=== PATIENT | male | born 1940 | race Caucasian/White ===

== ENCOUNTER → 2020-05-29 14:44 | Outpatient (BNVA) | payer MEDICARE, OTHER, SELFPAY | PROVIDERS: PCP Family Medicine; Visit Provider Orthopaedic Surgery | DX: G56.01 Carpal tunnel syndrome, right upper limb | CPT/HCPCS: 73100 ==

== ENCOUNTER → 2020-06-07 09:32 | Outpatient (BNVA) | payer MEDICARE, OTHER, SELFPAY | PROVIDERS: PCP Family Medicine; Visit Provider Orthopaedic Surgery | DX: Z01.812 Encounter for preprocedural laboratory examination (principal); Z11.52 Encounter for screening for COVID-19 | CPT/HCPCS: 87635 ==

== ENCOUNTER 2020-06-13 07:19 | Day surgery (SDC) | payer MEDICARE, OTHER, SELFPAY ==
[2020-06-12 15:48] VITALS: BMI 26.6
--- NOTE | 2020-06-13 07:41 | PC.NURSE ---
VERBAL CONSENT VIA CONVERSATION WITH PATIENT
--- NOTE | 2020-06-13 07:41 | PC.NURSE ---
VERBAL CONSENT VIA CONVERSATION WITH PATIENT FOR RIGHT CARPAL TUNNEL RELEASE WITNESSED BY SCARLETT JALLOH
[2020-06-13 07:42] VITALS: BP 159/81; PULSE 50; RESP 18; TEMP 36.1; O2SAT 99
--- NOTE | 2020-06-13 07:58 | ANES.PREANE2 ---
Pre-Anesthetic Assessment Pre-Anesthetic Assessment: Height/Weight: Height 1.73 m Weight 79.379 kg Temp Pulse Resp BP Pulse Ox 97.0 F L 50 L 18 159/81 99 06/13/20 07:42 06/13/20 07:42 06/13/20 07:42 06/13/20 07:42 06/13/20 07:42 Preop Diagnosis: Carpal tunnel syndrome right Proposed Procedure: Operation Date: 06/13/20 08:50 Proposed Procedures p right Carpal Tunnel Release [id number] g56.03(Right) - Brandon Parikh MD Was Beta Fredi taken within 24 hours: Yes Last intake: Intake Last Liquid Date 06/12/20 Last Liquid Time 21:00 Last Solid Date 06/12/20 Last Solid Time 18:00 Social: Social History: No alcohol and No tobacco Exam: Pre-Anes Outpt Exam: alert, oriented x 3, clear to auscultation bilaterally and regular rate & rhythm Airway: Submandibular: WNL Cervical ROM: WNL MP: 2 History/ROS: No significant complaints Pulmonary: Pulmonary: None reported CV/HEM: CV/HEM: HTN : : None reported Hepatic: Hepatic: None reported GI: GI: None reported Metabolic: Metabolic: Hyperlipidemia and Thyroid Musc/skel: Musc/skel: None reported Neuropsych: Neuropsych: Depression Anesthetic Plan: ASA status: 3 Anesthesia: Regional (specify below) (Leyla Block with IVS) Data Anesthesia Cardiac Studies: No Data to Display
[2020-06-13] MEDS: sodium chloride 0.9% 1,000 ML 30 ML IV (08:03)
--- NOTE | 2020-06-13 09:06 | W.PM.OPSUD ---
Surgery/Procedure H&P Update DATE OF PROCEDURE: June 13, 2020 DATE H&P PERFORMED: 05/29/20 PREOP DIAGNOSIS: Carpal tunnel syndrome right PLANNED PROCEDURE: Operation Date: 06/13/20 08:50 Proposed Procedures p right Carpal Tunnel Release 61860 g56.03(Right) - Brandon Parikh MD
[2020-06-13 09:44] VITALS: BP 155/73; PULSE 44; RESP 16; TEMP 36.2; O2SAT 93
[2020-06-13 09:50] VITALS: BP 146/80; PULSE 48; RESP 18; TEMP 36.6; O2SAT 96
--- NOTE | 2020-06-13 09:51 | PM.OP ---
Operative Report Date of procedure: June 13, 2020 Pre-op Diagnosis: Carpal tunnel syndrome right Post-op diagnosis: same Post-op Findings: Right carpal tunnel syndrome Procedure Done: Right carpal tunnel release Pathology: none sent Surgeon: Brandon Parikh Anesthesia: Nerve Block (Leyla block) Estimated blood loss (mL): 5 Complications: None Findings: No masses or space-occupying lesions were seen with the carpal tunnel Condition: stable Procedure: Patient was taken to the operating room and anesthesia provided by the anesthesia service. She was prepped and draped with the arm exposed. A timeout was performed. A 3 cm long incision was made in line with the fourth ray from the distal edge of the carpal tunnel extending proximally. The subcutaneous fat and palmar fascia was divided with a scalpel blade. Under loupe magnification the ulnar neurovascular bundle was identified distally. A hemostat could be passed under the transverse carpal ligament allowing the distal 25% to be divided. A slotted guide was then passed beneath the transverse carpal ligament and the middle 50% divided. Blunt scissors were then passed over the guide freeing the proximal ligament. The tourniquet was deflated. Hemostasis provided with electrocautery. Wound edges were infiltrated with 10 cc of a half percent Marcaine solution. Skin edges were reapproximated with 3-0 Prolene. Sterile dressings were applied. The patient was taken to the recovery room in stable condition
[2020-06-13 09:57] VITALS: BP 162/82; PULSE 45; RESP 18; TEMP 36.6; O2SAT 97
--- NOTE | 2020-06-13 10:16 | ANE.PACU2 ---
Inpatient post-anesthesia follow up: Airway intact: Yes Vital signs: Temperature 97.8 F Pulse Rate 45 Respiratory Rate 18 Blood Pressure 162/82 Pulse Oximetry 97 Oxygen Delivery Me thod Room Air Oxygen Flow Rate Fraction of Inspir ed Oxygen Hydration adequate: Yes Nausea and vomiting: No Pain level: 2 Mental status: Baseline
[2020-06-13 10:17] VITALS: BP 169/88; PULSE 43; RESP 18; TEMP 36.6; O2SAT 98
--- NOTE | 2020-06-13 16:24 | PC.NURSE ---
VERBAL CONSENT VIA CONVERSATION WITH PATIENT FOR RIGHT CARPAL TUNNEL RELEASE WITNESSED BY SCARLETT JALLOH
== END 2020-06-13 10:34 | disposition home or self-care (01) ==
PROVIDERS: PCP Family Medicine; Visit Provider Orthopaedic Surgery
PROC: (CPT 64721; principal; 2020-06-13 08:50)
DX: G56.01 Carpal tunnel syndrome, right upper limb (principal); I10 Essential (primary) hypertension; E78.5 Hyperlipidemia, unspecified
CPT/HCPCS: 64721; 96365; J0690; J1885; J2704; J3010; J3490; J7030

== ENCOUNTER 2021-03-20 13:16 | Emergency (ER) | payer MEDICARE, OTHER, SELFPAY ==
[2021-03-20 13:29] VITALS: BP 141/72; PULSE 44; RESP 16; TEMP 36.1; O2SAT 97
--- NOTE | 2021-03-20 13:58 | W.ED.GENADLT ---
HPI - General Adult General: Chief complaint: Back Pain/Injury Stated complaint: LOW BACK PAIN Time Seen by Provider: 03/20/21 13:38 History of Present Illness: HPI narrative: CC: Back pain HPI: [80]yo patient w/ hx of episodic chronic bakc pain presenting to the ED with acutely worsening of L glute/lower back pain after patient bent over yesterday morning. Denies any trauma. Patient says that he feels like there is a knot in his lower back and gluteal area. Today, patients denies trauma to the back, fever/chill/IVDU, LE weakness, saddle anesthesia/bowel incontinence/bladder incontinence, or hx of recent weight loss or cancer. In addition, he does not have a history of kidney stone or urinary symptoms/hx of UTI. Of note, patient has had similar episode of prior back pain that required injection. Patient went to see a chiropractor last year and had resolution of symptoms. Reports that his current pain feels similar to before. Onset: chronic, acutely worsening symptoms x 2 days Duration: 2 days Location: L glute/L lower back Severity: moderate Review of Systems Narrative: Constitutional: No fever, no chills. HEENT: No vision changes CV: No chest pain, no palpitations PULM: No cough, no dyspnea. GI: No abdominal pain, no N/V/D. : No dysuria MSKEL: No edema SKIN: No new rashes, no lesions. NEURO: No headache, no focal weakness. HEME: No visible bruises PSYCH: Normal mood BACK: +L-glute/L-lower back pain/knot Physical Exam Narrative: EXAM NARRATIVE: Head: Atraumatic Eyes: PERRL, conjunctiva without injection ENT: Mucous membrane moist NECK: Supple without lymphadenopathy LUNGS: CTA CV: RRR ABDOMEN: Soft, nontender EXTREMITY: Normal ROM, 5/5 strength in hip/knee/ankle f/e bilaterally, sensation intact bilaterally in the LE, +L lower back pain SKIN: No rash or erythema NEURO: Awake and alert. No focal motor deficits. PSYCH: Normal mood and affect. : No saddle anesthesia BACK: No midline tenderness, no step off, obvious deformity, hip stable, +palpable muscle knot at the L upper glute/sacral area with mild tenderness to palpation, no signs of infection surrounding the knot Procedures Nerve Block Nerve Block 1: Time out performed: Yes Local Anesthetic: lidocaine 1%, bupivacaine 0.5% and with epi Amount of anesthesia used (mL): 8 Nerve Blocks: other (trigger point injection) Procedure Successful: Yes Patient Tolerated Procedure: well Complications: none Additional Comments: Risks of procedures in infection, nerve injury, hematoma, and bleeding discussed extensively with patient and alternatives of medical management discussed in detail. Patient elects for the procedure. Trigger point injections of the L glutes - one trixie were appreciated on palpitation. Surface cleaned extensively with isopropyl alcohol and chlorohexadine, sterile 7-0 gloves used. 40mg of kenalog mixed 8 cc of lidocaine 1% w/ epi and 0.5% bupivcane w/ epi were injected into the sites of pain and pressure. Course Vital Signs: Vital signs: Vital Signs Temperature 97.0 F L 03/20/21 13:29 Pulse Rate 44 L 03/20/21 13:29 Respiratory Rate 16 03/20/21 13:29 Blood Pressure 141/72 03/20/21 13:29 Pulse Oximetry 97 03/20/21 13:29 MDM - General Adult MDM Narrative: Medical decision making narrative: [80]yo patient w/ hx of chronic back pain presenting with L glute/lower back pain x 2days after bening back. No pain with ambulation. No sciatical like radiation of pain. Neurological exam including LE exam intact. The Patient is able to bear weight on legs and ambulate with moderate pain. No red flags of IVDU/fever, hx or symptomatology of cancer w/ mets to the bones, neurological findings or bowel or bladder incontinence, or acute trauma/fracture of the vertebral columns. POCUS U/S did not show enlarged AAA. Intervention: trigger point injection [2:30pm] On reassessment, the patient reports the pain is significantly improved with injection. Please refer to the procedure note for the sterile injection Patient is now able to ambulate in the ED with only mild pain. At the present time, I have discussed the importance for the patient to follow up with orthopedics KELIN and the patient agrees. No suspicion for acute cord compression at this time. Is noted to have heart rate in the 40s. EKG showing regular sinus rhythm at HT of [44]. Normal axis. No ST elevations/depressions to suggest coronary occlusion. Normal HI, QRS, QT intervals. Patient denies any symptoms of palpitation, lightheadedness, exertional chest pain or shortness of breath. At the present time, given no findings of heart block and no symptoms, patient is given follow-up with primary care provider for close followup. Rx: Lidocaine patch/tylenol/menthol crema PRN pain Disposition: Discharge. Patient is given SRP for any focal weakness, intractable pain, fever/chill, any signs of bowel or bladder incontinence. Patient is instructed to follow up with the orthopedics provider. I have provided an additional orthopedic referral for the patient should the patient need it. Patient verbalizes understanding and plans to do so in the next fews. Lab Data: Labs: Lab Results 03/20/21 03/20/21 13:50 13:50 WBC 7.5 10^3/uL 10^3/ uL (4.0-10.0) RBC 4.51 10^6/uL 10^6 /uL (4.1-5.3) Hgb 13.8 g/dL g/dL (11.7-16.6) Hct 41.1 % L % (42.0-52.0) MCV 91.1 fl fl (80-94) MCH 30.6 pg pg (28.0-34.0) MCHC 33.6 g/dL g/dL (30.0-36.0) RDW 12.2 % % (12.1-15.1) Plt Count 192 10^3/cmm 10^3 /cmm (130-400) MPV 9.8 fL fL (7.4-10.4) Neut % (Auto) 72.1 % % Lymph % (Auto) 17.3 % % [place] % (Auto) 8.3 % % Eos % (Auto) 1.7 % % Baso % (Auto) 0.5 % % Neut # (Auto) 5.41 10^3/uL 10^3 /uL (1.8-7.7) Lymph # (Auto) 1.3 10^3/uL 10^3/ uL (0.8-4.8) [place] # (Auto) 0.6 10^3/uL 10^3/ uL (0.2-0.9) Eos # (Auto) 0.1 10^3/uL 10^3/ uL (0.0-0.8) Baso # (Auto) 0.0 10^3/uL 10^3/ uL (0.0-0.1) Nucleated RBC % (a uto) 0 % % Nucleated RBCs # 0.0 /100WBC /100W BC Sodium 136 mmol/L mmol/L (136-145) Potassium 4.2 mmol/L mmol/L (3.5-5.1) Chloride 101 mmol/L mmol/L (98-107) Carbon Dioxide 21 mmol/L L mmol/ L (22-29) Anion Gap 18.2 (5-19) BUN 23 mg/dL mg/dL (8-23) Creatinine 1.1 mg/dL mg/dL (0.7-1.2) GFR Calculation Not Reportable Glucose 110 mg/dL mg/dL (65-115) Calculated Osmolal ity 286 mOsm/kg mOsm/ kg (285-295) Calcium 8.8 mg/dL mg/dL (8.5-10.5) Discharge Plan Discharge Patient Disposition: Home Clinical Impression: Back pain, Gluteal pain, Trigger point Condition: Stable Prescriptions: New acetaminophen 500 mg tablet 500 mg PO Q6H PRN (Reason: pain) 5 Days Qty: 20 RF: 0 lidocaine 5 % adhesive patch,medicated 1 patch topical DAILY PRN (Reason: pain) 10 Days Qty: 10 RF: 0 Biofreeze (menthol) 5 % gel 1 ea topical BID PRN (Reason: pain) 10 Days Qty: 1 RF: 0 No Action venlafaxine 50 mg tablet 50 mg PO DAILY RF: 0 simvastatin 10 mg tablet 10 mg PO DAILY RF: 0 levothyroxine [Euthyrox] 50 mcg tablet 50 mcg PO DAILY RF: 0 telmisartan 40 mg tablet 40 mg PO DAILY RF: 0 metoprolol succinate 25 mg tablet extended release 24 hr 25 mg PO DAILY RF: 0 aspirin 81 mg Tablet,Delayed Release (Dr/Ec) 81 mg PO DAILY RF: 0 vitamin B complex Capsule 1 cap PO DAILY RF: 0 ascorbic acid (vitamin C) 25 mg Tablet 25 mg PO DAILY RF: 0 [id number]-epa-fish oil 350-400 mg Capsule 350 cap PO DAILY RF: 0 [place] 5-325 mg tablet 1 tab PO Q4H PRN (Reason: pain) Qty: 20 RF: 0 Discharge Orders: Discharge ED (Routine); Ordered 03/20/21 Ordered By: Celi Kumar Referrals: Carola Elaine MD [Primary Care Provider] - Discharge Diet: Advance as tolerated Discharge Activity: Resume usual activity Patient Instructions: Acute Low Back Pain (ED) Activity Restrictions/Additional Instructions: Please come back to the emergency room to have worsening back pain, if have any problem with urination and bowel movementm if you have any weakness in the legs, numbness in the legs, or if you have any new or concerning complaints. Coding Level of Care Code ED [employer] Stock [employer] for Axel Lim
[2021-03-20 14:04] LABS: Basophils % 0.5 %; Eosinophils # 0.1 10^3/uL (0.0-0.8); Eosinophils % 1.7 %; Hematocrit 41.1 % (42.0-52.0); Hemoglobin 13.8 g/dL (11.7-16.6); Lymphocytes # 1.3 10^3/uL (0.8-4.8); Lymphocytes % 17.3 %; Mean Corpuscular HGB Conc 33.6 g/dL (30.0-36.0); Mean Corpuscular Hemoglobin 30.6 pg (28.0-34.0); Mean Corpuscular Volume 91.1 fl (80-94); Mean Platelet Volume 9.8 fL (7.4-10.4); Monocytes # 0.6 10^3/uL (0.2-0.9); Monocytes % 8.3 %; Neutrophils # 5.41 10^3/uL (1.8-7.7); Neutrophils % 72.1 %; Nucleated Red Blood Cells % 0 %; Platelet Count 192 10^3/cmm (130-400); Red Blood Count 4.51 10^6/uL (4.1-5.3); Red Cell Distribution Width 12.2 % (12.1-15.1); White Blood Count 7.5 10^3/uL (4.0-10.0)
[2021-03-20 14:21] LABS: Anion Gap 18.2 (5-19); Blood Urea Nitrogen 23 mg/dL (8-23); Calcium 8.8 mg/dL (8.5-10.5); Carbon Dioxide 21 mmol/L (22-29); Chloride 101 mmol/L (98-107); Glucose 110 mg/dL (65-115); Osmolality Calculated 286 mOsm/kg (285-295); Potassium 4.2 mmol/L (3.5-5.1); Sodium 136 mmol/L (136-145)
[2021-03-20] MEDS: triamcinolone 40 mg/mL SDV IM (14:35)
== END 2021-03-20 14:59 | disposition home or self-care (01) ==
PROVIDERS: Emergency Provider Emergency Medicine; PCP Family Medicine
DX: M54.50 Low back pain, unspecified (principal); Z79.82 Long term (current) use of aspirin
CPT/HCPCS: 80048; 85025; 96372; 99283; J3301; J3490

== ENCOUNTER → 2021-06-16 13:57 | Outpatient (BNVA) | payer MEDICARE, OTHER, SELFPAY | PROVIDERS: PCP Family Medicine; Visit Provider Specialist | DX: G62.9 Polyneuropathy, unspecified (principal); G31.84 Mild cognitive impairment of uncertain or unknown etiology | CPT/HCPCS: 99204 ==

== ENCOUNTER → 2021-08-26 14:20 | Outpatient (BNVA) | payer MEDICARE, OTHER, SELFPAY | PROVIDERS: PCP Family Medicine; Referring Provider Specialist; Visit Provider Specialist | DX: G62.89 Other specified polyneuropathies (principal); G56.03 Carpal tunnel syndrome, bilateral upper limbs | CPT/HCPCS: 95913 ==

== ENCOUNTER 2021-09-15 10:59 | Outpatient (CLI) | payer MEDICARE, OTHER, SELFPAY ==
[2021-09-15 12:42] LABS: Estmated Average Glucose 105; Hemoglobin A1C 5.3 % (4.0-6.0)
[2021-09-15 13:02] LABS: Erythrocyte Sedimentation Rate 7 mm/hr (0-10)
[2021-09-15 13:14] LABS: Vitamin B12 699 pg/mL (232-1245)
[2021-09-15 13:31] LABS: Folate Level > 20.0 ng/mL (4.5-32.2)
[2021-09-16 10:11] LABS: PROTEIN, TOTAL 6.9 g/dL (6.1-8.1)
[2021-09-16 17:12] LABS: ALBUMIN 3.8 g/dL (3.8-4.8); ALPHA 1 GLOBULIN 0.3 g/dL (0.2-0.3); ALPHA 2 GLOBULIN 0.7 g/dL (0.5-0.9); BETA 1 GLOBULIN 0.4 g/dL (0.4-0.6); BETA 2 GLOBULIN 0.5 g/dL (0.2-0.5); GAMMA GLOBULIN 1.2 g/dL (0.8-1.7)
== END 2021-09-15 11:00 | disposition home or self-care (01) ==
LOC: LAB 11:02
PROVIDERS: PCP Family Medicine; Visit Provider Specialist
DX: G62.9 Polyneuropathy, unspecified (principal); R29.90 Unspecified symptoms and signs involving the nervous system; R73.9 Hyperglycemia, unspecified
CPT/HCPCS: 36415; 82607; 82746; 83036; 84155; 84165; 85651

== ENCOUNTER → 2021-10-01 14:51 | Outpatient (BNVA) | payer MEDICARE, OTHER, SELFPAY | PROVIDERS: PCP Family Medicine; Referring Provider Specialist; Visit Provider Specialist | DX: G56.03 Carpal tunnel syndrome, bilateral upper limbs (principal); G62.9 Polyneuropathy, unspecified | CPT/HCPCS: 99213 ==

== ENCOUNTER → 2021-10-14 10:05 | Outpatient (BNVA) | payer MEDICARE, OTHER, SELFPAY | PROVIDERS: PCP Family Medicine; Visit Provider Orthopaedic Surgery | DX: G56.02 Carpal tunnel syndrome, left upper limb (principal) | CPT/HCPCS: 99213; 99214 ==

== ENCOUNTER 2021-10-30 06:14 | Day surgery (SDC) | payer MEDICARE, OTHER, SELFPAY ==
[2021-10-30 06:30] VITALS: BP 149/73; PULSE 53; RESP 16; TEMP 36.2; O2SAT 98
[2021-10-30] MEDS: sodium chloride 0.9% 1,000 ML 30 ML IV (06:42)
--- NOTE | 2021-10-30 06:48 | ANES.PREANE2 ---
Pre-Anesthetic Assessment Height/Weight: Height 1.73 m Weight 81.647 kg Temp Pulse Resp BP Pulse Ox O2 Del Method 97.1 F L 53 L 16 149/73 98 10/30/21 06:30 10/30/21 06:30 10/30/21 06:30 10/30/21 06:30 10/30/21 06:30 10/30/21 06:30 Preop Diagnosis: Carpal tunnel syndrome Left Operation Date: 10/30/21 07:00 Proposed Procedures p Left Carpal Tunnel Release [id number],G56.02(Left) - Brandon Parikh MD Familial anesthetic complications: None Was Beta Fredi taken within 24 hours: Yes Was Clonidine taken within 24 hours: N/A Last intake: Intake Last Liquid Date 10/29/21 Last Liquid Time 18:00 Last Solid Date 10/29/21 Last Solid Time 18:00 Social No alcohol and No tobacco Exam alert, oriented x 3, clear to auscultation bilaterally and regular rate & rhythm Airway Mallampati: Class II Dentition: full CV/HEM Hypertension Metabolic Hyperlipidemia and Thyroid Disease Anesthetic Plan ASA status: 3 Anesthesia: MAC and Regional (specify below) (latoya block) Risk of > 500 ml blood loss (7ml/kg in children): No Medications/Allergies Home Medications Medication Instructions Recorded Confirmed Last Taken Type levothyroxine 50 mcg tablet 50 mcg PO DAILY 05/29/20 10/30/21 10/29/21 History (Euthyrox) metoprolol succinate 25 mg 25 mg PO DAILY 05/29/20 10/30/21 10/30/21 History tablet,extended release 24 hr simvastatin 10 mg tablet 10 mg PO DAILY 05/29/20 10/30/21 10/29/21 History telmisartan 40 mg tablet 40 mg PO DAILY 05/29/20 10/30/21 10/29/21 History venlafaxine 50 mg tablet 50 mg PO DAILY 05/29/20 10/30/21 10/30/21 History ascorbic acid (vitamin C) 25 mg 25 mg PO DAILY 06/12/20 10/30/21 10/29/21 History tablet onpxw1-ayd-nyv-other [id number] 350 cap PO DAILY 06/12/20 10/30/21 10/29/21 History oil 350 mg- 400 mg capsule vitamin B complex 1 cap PO DAILY 06/12/20 10/30/21 10/29/21 History Allergies Allergy/AdvReac Type Severity Reaction Status Date / Time succinylcholine Allergy Unknown Verified 10/30/21 06:24 [From Anectine] Current Medications Generic Name Dose Route Start Last Admin Trade Name Freq PRN Reason Stop Dose Admin Sodium Chloride 1,000 mls @ 30 mls/hr 10/30/21 06:30 10/30/21 06:42 Sodium Chloride 0.9% IV 10/31/21 06:29 30 mls/hr .Q24H KEVIN Administration PFSH Anesthesia Social History Smoking and tobacco status: never smoked Alcohol intake: never History of recent travel: No Data Anesthesia Cardiac Studies: No Data to Display
[2021-10-30] MEDS: ceFAZolin 2,000 MG in sodium chloride 0.9% (plus) 50 ML 100 MG IV (07:08)
--- NOTE | 2021-10-30 07:38 | SUR.OPER ---
10ML 0.5% BUPIVACAINE WITH EPI WAS INJECTED AND USED IRRIGATION IN THE LEFT WRIST.
--- NOTE | 2021-10-30 07:48 | W.PM.OPSUD ---
Surgery/Procedure H&P Update DATE OF PROCEDURE: October 30, 2021 DATE H&P PERFORMED: 10/14/21 H&P UPDATE INFORMATION: I have reviewed H&P completed within last 30 days PREOP DIAGNOSIS: Carpal tunnel syndrome Left PLANNED PROCEDURE: Operation Date: 10/30/21 07:00 Proposed Procedures p Left Carpal Tunnel Release [id number],G56.02(Left) - Brandon Parikh MD
--- NOTE | 2021-10-30 07:50 | PM.OP ---
Operative Report Date of procedure: October 30, 2021 Pre-op diagnosis: Preop Diagnosis Carpal tunnel syndrome Left Post-op diagnosis: same Post-op diagnosis: Same Procedure done: Left carpal tunnel release Pathology: none sent Surgeon: Brandon Parikh Anesthesia: Nerve Block ([place] block) Estimated blood loss (mL): 2 Tourniquet time (min): 20 Findings: No masses or space-occupying lesions were seen within the carpal tunnel Condition: stable Disposition: PACU Procedure: Patient was taken to the operating room and anesthesia provided by the anesthesia service. She was prepped and draped with the arm exposed. A timeout was performed. A 3 cm long incision was made in line with the fourth ray from the distal edge of the carpal tunnel extending proximally. The subcutaneous fat and palmar fascia was divided with a scalpel blade. Under loupe magnification the ulnar neurovascular bundle was identified distally. A hemostat could be passed under the transverse carpal ligament allowing the distal 25% to be divided. A slotted guide was then passed beneath the transverse carpal ligament and the middle 50% divided. Blunt scissors were then passed over the guide freeing the proximal ligament. The tourniquet was deflated. Hemostasis provided with electrocautery. Wound edges were infiltrated with 10 cc of a half percent Marcaine solution. Skin edges were reapproximated with 3-0 Prolene. Sterile dressings were applied. The patient was taken to the recovery room in stable condition
[2021-10-30 07:51] VITALS: BP 107/84; PULSE 48; RESP 16; TEMP 36.3; O2SAT 94
[2021-10-30 07:55] VITALS: BP 119/71; PULSE 49; RESP 16; O2SAT 96
[2021-10-30 07:57] VITALS: BP 113/72; PULSE 48; RESP 16; TEMP 36.4; O2SAT 94
[2021-10-30 08:03] VITALS: BP 113/71; PULSE 49; RESP 16; TEMP 36.6; O2SAT 98
[2021-10-30 08:18] VITALS: BP 130/70; PULSE 50; RESP 17; TEMP 36.6; O2SAT 99
--- NOTE | 2021-10-30 12:50 | ANE.PACU2 ---
Inpatient post-anesthesia follow up: Airway intact: Yes Vital signs: Temperature 98 F Pulse Rate 50 Respiratory Rate 17 Blood Pressure 130/70 Pulse Oximetry 99 Oxygen Delivery Me thod Room Air Oxygen Flow Rate Fraction of Inspir ed Oxygen Hydration adequate: Yes Nausea and vomiting: No Pain level: 2 Mental status: Baseline
== END 2021-10-30 08:35 | disposition home or self-care (01) ==
PROVIDERS: PCP Family Medicine; Visit Provider Orthopaedic Surgery
PROC: (CPT 64721; principal; 2021-10-30 07:00)
DX: G56.02 Carpal tunnel syndrome, left upper limb (principal); I10 Essential (primary) hypertension; E78.5 Hyperlipidemia, unspecified
CPT/HCPCS: 64721; J2704; J3010; J7030

== ENCOUNTER → 2021-11-04 07:44 | Outpatient (BNVA) | payer MEDICARE, OTHER, SELFPAY | PROVIDERS: PCP Family Medicine; Visit Provider Nurse Practitioner Family | DX: Z98.890 Other specified postprocedural states (principal) | CPT/HCPCS: 99024 ==

== ENCOUNTER → 2021-11-24 09:55 | Outpatient (BNVA) | payer MEDICARE, OTHER, SELFPAY | PROVIDERS: PCP Family Medicine; Visit Provider Podiatrist Foot & Ankle Surgery | DX: G62.9 Polyneuropathy, unspecified (principal); L60.3 Nail dystrophy | CPT/HCPCS: 99203; 99204 ==

== ENCOUNTER → 2022-05-12 13:42 | Outpatient (BNVA) | payer MEDICARE, OTHER, SELFPAY | PROVIDERS: PCP Family Medicine; Visit Provider Specialist | DX: G30.9 Alzheimer's disease, unspecified (principal); F02.80 Dementia in other diseases classified elsewhere, unspecified severity, without behavioral disturbance, psychotic disturbance, mood disturbance, and anxiety; G62.9 Polyneuropathy, unspecified | CPT/HCPCS: 96116; 99215 ==

== ENCOUNTER → 2022-08-24 14:45 | Outpatient (BNVA) | payer MEDICARE, OTHER, SELFPAY | PROVIDERS: PCP Family Medicine; Visit Provider Specialist | DX: G62.9 Polyneuropathy, unspecified (principal); G30.9 Alzheimer's disease, unspecified; F02.80 Dementia in other diseases classified elsewhere, unspecified severity, without behavioral disturbance, psychotic disturbance, mood disturbance, and anxiety | CPT/HCPCS: 99214 ==

== ENCOUNTER → 2022-10-19 07:42 | Outpatient (BNVA) | payer MEDICARE, OTHER, SELFPAY | PROVIDERS: PCP Family Medicine; Visit Provider Podiatrist Foot & Ankle Surgery | DX: M20.21 Hallux rigidus, right foot (principal); G62.89 Other specified polyneuropathies; L60.3 Nail dystrophy; R23.4 Changes in skin texture | CPT/HCPCS: 73630; 99214 ==

== ENCOUNTER → 2023-02-01 09:14 | Outpatient (BNVA) | payer MEDICARE, OTHER, SELFPAY | PROVIDERS: PCP Family Medicine; Visit Provider Specialist | DX: G30.9 Alzheimer's disease, unspecified (principal); F02.80 Dementia in other diseases classified elsewhere, unspecified severity, without behavioral disturbance, psychotic disturbance, mood disturbance, and anxiety; G62.89 Other specified polyneuropathies; F32.A Depression, unspecified; T43.226A Underdosing of selective serotonin reuptake inhibitors, initial encounter; Z91.A28 Caregiver's intentional underdosing of medication regimen for other reason | CPT/HCPCS: 99215 ==

== ENCOUNTER → 2023-02-08 13:35 | Outpatient (BNVA) | payer MEDICARE, OTHER, SELFPAY | PROVIDERS: PCP Family Medicine; Visit Provider Specialist | DX: G30.9 Alzheimer's disease, unspecified (principal); F02.80 Dementia in other diseases classified elsewhere, unspecified severity, without behavioral disturbance, psychotic disturbance, mood disturbance, and anxiety; R63.4 Abnormal weight loss; Z68.23 Body mass index [BMI] 23.0-23.9, adult | CPT/HCPCS: 99215 ==

== ENCOUNTER → 2023-07-27 08:14 | Outpatient (BNVA) | payer MEDICARE, OTHER, SELFPAY | PROVIDERS: PCP Family Medicine; Visit Provider Specialist | DX: R29.90 Unspecified symptoms and signs involving the nervous system (principal); G30.9 Alzheimer's disease, unspecified; F02.80 Dementia in other diseases classified elsewhere, unspecified severity, without behavioral disturbance, psychotic disturbance, mood disturbance, and anxiety; G62.89 Other specified polyneuropathies; F33.41 Major depressive disorder, recurrent, in partial remission | CPT/HCPCS: 96116; 99214 ==

== ENCOUNTER → 2024-01-26 09:45 | Outpatient (BNVA) | payer MEDICARE, OTHER, SELFPAY | PROVIDERS: PCP Family Medicine; Visit Provider Specialist | DX: R29.90 Unspecified symptoms and signs involving the nervous system (principal); G30.9 Alzheimer's disease, unspecified; F02.80 Dementia in other diseases classified elsewhere, unspecified severity, without behavioral disturbance, psychotic disturbance, mood disturbance, and anxiety; G62.89 Other specified polyneuropathies; F33.41 Major depressive disorder, recurrent, in partial remission | CPT/HCPCS: 99213; 99214 ==

== ENCOUNTER → 2024-07-11 10:15 | Outpatient (BNVA) | payer MEDICARE, OTHER, SELFPAY | PROVIDERS: PCP Family Medicine; Visit Provider Podiatrist Foot & Ankle Surgery | DX: I73.9 Peripheral vascular disease, unspecified (principal); L60.3 Nail dystrophy; Q82.8 Other specified congenital malformations of skin; G62.89 Other specified polyneuropathies; M20.21 Hallux rigidus, right foot | CPT/HCPCS: 11721; 17110 ==

== ENCOUNTER → 2024-07-26 11:17 | Outpatient (BNVA) | payer MEDICARE, OTHER, SELFPAY | PROVIDERS: PCP Family Medicine; Visit Provider Specialist | DX: G45.9 Transient cerebral ischemic attack, unspecified (principal); G30.9 Alzheimer's disease, unspecified; F02.80 Dementia in other diseases classified elsewhere, unspecified severity, without behavioral disturbance, psychotic disturbance, mood disturbance, and anxiety; G62.89 Other specified polyneuropathies; F33.41 Major depressive disorder, recurrent, in partial remission | CPT/HCPCS: 99215 ==

== ENCOUNTER 2024-08-02 08:24 | Outpatient (CLI) | payer MEDICARE, OTHER, SELFPAY ==
--- NOTE | 2024-08-02 09:00 | MR_ITS ---
WS: [id number] MRA HEAD TECHNIQUE: Axial 3-D TOF images obtained with axial images and axial, sagittal, and coronal 2-D reformatted images. CLINICAL INFORMATION: G45.9 - Transient cerebral ischemic attack, unspecified COMPARISON: None. FINDINGS: Dominant distal LEFT vertebral artery. Tortuous basilar artery. Basilar artery is patent. Normal vascularity to the PHONE ENGINEER territory bilaterally. Both ICAs are patent at the skull base. Small A1 segments bilaterally. Normal vascularity to the [place] and MCA territories bilaterally. No evidence of proximal flow-limiting stenosis. MR/MR angio head wo con [id number] IMPRESSION: Motion artifact degrades images 1. Mild intracranial atheromatous disease. 2. No evidence of proximal flow-limiting stenosis.
== END 2024-08-02 08:25 | disposition home or self-care (01) ==
PROVIDERS: PCP Family Medicine; Visit Provider Specialist
DX: G45.9 Transient cerebral ischemic attack, unspecified (principal); I67.2 Cerebral atherosclerosis; R93.0 Abnormal findings on diagnostic imaging of skull and head, not elsewhere classified
CPT/HCPCS: 70544

== ENCOUNTER 2024-08-05 09:31 | Emergency (ER) | payer MEDICARE, OTHER, SELFPAY ==
--- NOTE | 2024-08-05 09:43 | CTR_ITS ---
PROCEDURE INFORMATION: Exam: CT Abdomen And Pelvis With Contrast Exam date and time: 08/05/2024 10:25 AM Age: 84 years old Clinical indication: Other: Gross hematuria; HX of bladder cancer 2002 TECHNIQUE: Imaging protocol: Computed tomography of the abdomen and pelvis with contrast. Radiation optimization: All CT scans at this facility use at least one of these dose optimization techniques: automated exposure control; mA and/or kV adjustment per patient size (includes targeted exams where dose is matched to clinical indication); or iterative reconstruction. Contrast material: OMNIPAQUE 350; Contrast volume: 100 ml; Contrast route: INTRAVENOUS (IV); COMPARISON: No relevant prior studies available. RADIATION DOSE METRICS: Total DLP (mGy-cm): 696.38 FINDINGS: Liver: In segment IVb of the left hepatic lobe, there is a 2.4 x 2 cm lesion. Gallbladder and biliary ducts: Normal. No calcified stones. No ductal dilation. Pancreas: Normal. No ductal dilation. Spleen: Normal. No splenomegaly. Adrenal glands: Normal. No mass. Kidneys and ureters: Bilateral renal simple cysts. Largest measures 5.2 x 6.1 cm. Stomach and bowel: Sigmoid colon diverticulosis. Diffuse colonic stool material. No small bowel loop dilatation. Appendix: Appendix is normal. Intraperitoneal space: Unremarkable. No free air. No significant fluid collection. Vasculature: Mild calcified atherosclerotic changes are seen throughout the abdominal aorta. Lymph nodes: Unremarkable. No enlarged lymph nodes. Urinary bladder: Bladder has irregular border. Multiple bladder diverticulum. Bladder wall thickening posteriorly measuring 1 cm. Reproductive: 5.4cm enlarged prostate. Bones/joints: Mild lumbar spine degenerative changes. Soft tissues: Unremarkable. CT/CT abdomen pelvis w con* [id number] IMPRESSION: 1. Bladder wall thickening posteriorly measuring 1 cm. Finding is nonspecific. Mucosal lesion can not be excluded. Patient has history of prior bladder cancer. Correlation with cystoscopy finding may be helpful. 2. In segment IVb of the left hepatic lobe, there is a 2.4 x 2 cm lesion. MRI of the liver without and with IV contrast for further evaluation is advised. 3. Bladder has irregular border. Multiple bladder diverticulum. Finding could be secondary to neurogenic bladder. 4. Mild calcified atherosclerotic changes are seen throughout the abdominal aorta. 5. Enlarged prostate. Correlation with patient's PSA level is advised. 6. Sigmoid colon diverticulosis. 7. Diffuse colonic stool material. Clinical correlation to exclude constipation is advised. 8. Mild lumbar spine degenerative changes. COMMENTS: Consistent with the [employer]'s Incidental Findings Committee white paper (J Am Justin Radiol 2018): Any incidental renal lesion less than 1 cm or classified as too small to characterize, or any incidental cystic renal lesion characterized as simple-appearing, is likely benign. No follow-up imaging is recommended for these lesions per consensus recommendations based on imaging criteria.
--- NOTE | 2024-08-05 09:43 | ED_ITS ---
HPI - General Adult 2 General: Chief complaint: Urogenital-Male Stated complaint: blood in urine Time Seen by Provider: 08/05/24 09:33 Source: patient Mode of arrival: ambulatory Limitations: no limitations History of Present Illness: 84-year-old male states for the last 2 d ays he has had painless hematuria. He states has been bright red in nature he denies any difficulty urinating denies any pain. He denies passing any blood clots. 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 He denies any vomiting or diarrhea Associated symptoms: Deny chest pain, dyspnea, headache(s), nausea, rash or vomiting Related Data Home Medications ?Medication ?Instructions ?Recorded ?Confirmed levothyroxine 50 mcg tablet 50 mcg PO DAILY 05/29/20 0 08/05/24 (Euthyrox) citalopram 20 mg tablet 20 mg PO DAILY 08/05/24 0506/27 Previous Rx's ?Medication ?Instructions ?Recorded quetiapine 25 mg tablet (Seroquel) 25 mg PO BID #180 t abs 01/26/24 galantamine 8 mg tablet 8 mg PO BID #180 tabs cephalexin 500 mg capsule 500 mg PO TID 7 days #21 cap s 08/05/24 Allergies Allergy/AdvReac Type Severity Reaction Status Date / Time succinylcholine (From Allergy Unknown Verified 07/26/24 12:04 Anectine) Review of Systems 2 Const: Denies: fever(s), chills, body aches or change in appetite ENMT: Denies: throat pain or dental pain Card: Denies: chest pain Resp: Denies: dyspnea GI: Denies: abdominal pain, nausea, vomiting or diarrhea : Reports: hematuria; Denies: dysuria Musc: Denies: neck pain or back pain Skin/Breast: Denies: rash Neuro: Denies: headache(s) PFSH ED 2 PFSH: Social History Smoking and tobacco/nicotine status: never used tobacco/nicotine Alcohol intake: never Substance/Drug Use: never Physical Exam 2 Const: COMMON NORMALS: no acute distress, patient oriented x3 and healthy appearing HENMT: COMMON NORMALS: normocephalic and atraumatic HEAD & SCALP: n ormocephalic and atraumatic Eye: COMMON NORMALS: conjunctivae normal CONJUNCTIVA: Yes conjunctivae normal Neck/C-Spine: COMMON NORMALS: full ROM and supple Chest: COMMONS NORMALS: normal inspection of the chest Resp: COMMON NORMALS: normal respiratory effort, No retractions, No use of accessory muscles and clear to auscultation bilaterally AUSCULTATION: clear to auscultation bilaterally Cardio: COMMON NORMALS: regular rate, regular rhythm and No murmurs present (Cardio) RATE: regular rate RHYTHM: regular rhythm GI: COMMON NORMALS: Normal to inspection, nondistended, normoactive bowel sounds present, Soft to palpation, non-tender and no masses PALPATION: Yes Soft to palpation Extremity: COMMON NORMALS: normal to inspection and full ROM Neuro: COMMON NORMALS: patient oriented x3, moves all extremities and no focal motor deficits Psych: COMMON NORMALS: mental status grossly normal, Normal thought process present and cooperative THOUGHT PROCESS: Normal thought process present Skin: COMMON NORMALS: no rashes or lesions noted and no wounds GENERAL SKIN EXAM: no rashes or lesions noted Course 2 Vital Signs: Vital signs: Vital Signs Temperature 97.6 F 08/05/24 09:44 Pulse Rate 45 L 08/05/24 11:21 Respiratory Rate 16 08/05/24 11:21 Blood Pressure 158/77 08/05/24 11:21 Pulse Oximetry 98 08/05/24 11:21 Oxygen Delivery Me thod Room Air 08/05/24 09:44 [facility] - General Adult Medical Decision Making Patient presents here with hematuria he is well-appearing here exam is benign his blood works normal CT scan showed no acute findings we will start him on antibiotics informed he needs a follow-up with urology he likely needs a cystoscope he has no blood clots that he has been passing informed he is return if worsening he understands agrees to plan Medical Records I reviewed the patient's medical records. Lab Data I reviewed the patient's lab results. 08/05/24 09:56 08/05/24 09:56 Radiology Impressions Abdomen/Pelvis CT 08/05/24 09:43 IMPRESSION: 1. Bladder wall thickening posteriorly measuring 1 cm. Finding is nonspecific. Mucosal lesion can not be excluded. Patient has history of prior bladder cancer. Correlation with cystoscopy finding may be helpful. 2. In segment IVb of the left hepatic lobe, there is a 2.4 x 2 cm lesion. MRI of the liver without and with IV contrast for further evaluation is advised. 3. Bladder has irregular border. Multiple bladder diverticulum. Finding could be secondary to neurogenic bladder. 4. Mild calcified atherosclerotic changes are seen throughout the abdominal aorta. 5. Enlarged prostate. Correlation with patient's PSA level is advised. 6. Sigmoid colon diverticulosis. 7. Diffuse colonic stool material. Clinical correlation to exclude constipation is advised. 8. Mild lumbar spine degenerative changes. COMMENTS: Consistent with the [employer]'s Incidental Findings Committee white paper (J Am Justin Radiol 2018): Any incidental renal lesion less than 1 cm or classified as too small to characterize, or any incidental cystic renal lesion characterized as simple-appearing, is likely benign. No follow-up imaging is recommended for these lesions per consensus recommendations based on imaging criteria. Laboratory Results WBC 6.18 10^3/uL (3.29-11.43) 08/05/24 09:56 RBC 4.85 10^6/uL (3.85-5.65) 08/05/24 09:56 Hgb 14.80 g/dL (11.27-16.99) 08/05/24 09:56 Hct 44.7 % (37-53) 08/05/24 09:56 MCV 92.2 fl (82-101) 08/05/24 09:56 MCH 30.5 pg (27-33) 08/05/24 09:56 MCHC 33.1 g/dL (30-55) 08/05/24 09:56 RDW 12.2 % (12.1-15.1) 08/05/24 09:56 Plt Count 180 10^3/cmm (157-399) 08/05/24 09:56 MPV 9.7 fL (7.4-10.4) 08/05/24 09:56 Neut % (Auto) 62.1 % 08/05/24 09:56 Lymph % (Auto) 21.7 % 08/05/24 09:56 Ward % (Auto) 9.7 % 08/05/24 09:56 Eos % (Auto) 5.5 % 08/05/24 09:56 Baso % (Auto) 0.8 % 08/05/24 09:56 Neut # (Auto) 3.84 10^3/uL (1.8-7.7) 08/05/24 09:56 Lymph # (Auto) 1.3 10^3/uL (0.8-4.8) 08/05/24 09:56 Ward # (Auto) 0.6 10^3/uL (0.2-0.9) 08/05/24 09:56 Eos # (Auto) 0.3 10^3/uL (0.0-0.8) 08/05/24 09:56 Baso # (Auto) 0.1 10^3/uL (0.0-0.1) 08/05/24 09:56 Nucleated RBC % (auto) 0 % 08/05/24 09:56 Nucleated RBCs # 0.0 /100WBC 08/05/24 09:56 PT 12.90 SECONDS (12.1-14.9) 08/05/24 09:56 INR 0.91 (0.8-1.2) 08/05/24 09:56 Sodium 136 mmol/L (136-145) 08/05/24 09:56 Potassium 4.4 mmol/L (3.5-5.1) 08/05/24 09:56 Chloride 101 mmol/L (98-107) 08/05/24 09:56 Carbon Dioxide 27 mmol/L (22-29) 08/05/24 09:56 Anion Gap 12.4 (5-19) 08/05/24 09:56 BUN 21 mg/dL (8-23) 08/05/24 09:56 Creatinine 1.1 mg/dL (0.7-1.2) 08/05/24 09:56 GFR Calculation Not Reportable 08/05/24 09:56 Glucose 91 mg/dL (65-115) 08/05/24 09:56 Calculated Osmolality 285 mOsm/kg (285-295) 08/05/24 09:56 Calcium 9.6 mg/dL (8.5-10.5) 08/05/24 09:56 Total Bilirubin 0.3 mg/dL (0.15-1.2) 08/05/24 09:56 AST 18 U/L (0-40) 08/05/24 09:56 ALT 13 U/L (0-41) 08/05/24 09:56 Alkaline Phosphatase 83 U/L (40-130) 08/05/24 09:56 Total Protein 7.3 g/dL (6.6-8.7) 08/05/24 09:56 Albumin 3.9 g/dL (3.5-5.2) 08/05/24 09:56 Globulin 3.4 g/dL (1.3-4.6) 08/05/24 09:56 Urine Color Red (Yellow) A 08/05/24 10:26 Urine Appearance Cloudy (CLEAR) A 08/05/24 10:26 Urine pH TNP 08/05/24 10:26 Ur Specific [place] TNP 08/05/24 10:26 Urine Protein TNP 08/05/24 10:26 Urine Glucose (UA) TNP 08/05/24 10:26 Urine Ketones TNP 08/05/24 10:26 Urine Blood TNP 08/05/24 10:26 Urine Nitrate TNP 08/05/24 10:26 Urine Bilirubin TNP 08/05/24 10:26 Urine Urobilinogen TNP 08/05/24 10:26 Ur Leukocyte Esterase TNP 08/05/24 10:26 Urine RBC Too numerous to cnt /hpf (0-2) H 08/05/24 10:26 Urine WBC 10-15 /hpf (0-5) H 08/05/24 10:26 Ur Squamous Epith Cells None /hpf (0-5) 08/05/24 10:26 Amorphous Sediment Not Reportable 08/05/24 10:26 Urine Bacteria 2+ /hpf (NONE) H 08/05/24 10:26 All radiology interpretation(s) finalized by discharge Discharge Plan Discharge Patient Disposition: Home Clinical Impression: Hematuria Condition: Stable Prescriptions: New cephalexin 500 mg capsule 500 mg PO TID 7 Days Qty: 21 0RF No Action levothyroxine [Euthyrox] 50 mcg tablet 50 mcg PO DAILY quetiapine [Seroquel] 25 mg tablet 25 mg PO BID Qty: 180 3RF Rx Instructions: to stop paranoia galantamine 8 mg tablet 8 mg PO BID Qty: 180 3RF Rx Instructions: administer with AM and PM meals citalopram 20 mg tablet 20 mg PO DAILY Rx Instructions: Take 1 tablet by mouth once daily Discharge Orders: Discharge ED (Routine); Ordered 08/05/24 Ordered By: Ashok Caruso Referrals: Carola Elaine MD [Primary Care Provider, [facility]] Discharge Diet: Advance as tolerated Discharge Activity: Resume usual activity Patient Instructions: Hematuria (ED) Print Language: [place] Coding Level of Care Code ED Third Miller for Axel Lim
[2024-08-05 09:44] VITALS: BP 139/82; PULSE 50; RESP 18; TEMP 36.4; O2SAT 99; BMI 26.1
[2024-08-05 09:59] LABS: Basophils # 0.1 10^3/uL (0.0-0.1); Basophils % 0.8 %; Eosinophils # 0.3 10^3/uL (0.0-0.8); Eosinophils % 5.5 %; Hematocrit 44.7 % (37-53); Lymphocytes # 1.3 10^3/uL (0.8-4.8); Lymphocytes % 21.7 %; Mean Corpuscular HGB Conc 33.1 g/dL (30-55); Mean Corpuscular Hemoglobin 30.5 pg (27-33); Mean Corpuscular Volume 92.2 fl (82-101); Mean Platelet Volume 9.7 fL (7.4-10.4); Monocytes # 0.6 10^3/uL (0.2-0.9); Monocytes % 9.7 %; Neutrophils # 3.84 10^3/uL (1.8-7.7); Neutrophils % 62.1 %; Nucleated Red Blood Cells % 0 %; Platelet Count 180 10^3/cmm (157-399); Red Blood Count 4.85 10^6/uL (3.85-5.65); Red Cell Distribution Width 12.2 % (12.1-15.1); White Blood Count 6.18 10^3/uL (3.29-11.43)
[2024-08-05 10:00] VITALS: BP 172/92; PULSE 51; RESP 16; O2SAT 97
[2024-08-05 10:11] LABS: INR 0.91 (0.8-1.2)
[2024-08-05 10:19] LABS: Alanine Aminotransferase 13 U/L (0-41); Albumin Level 3.9 g/dL (3.5-5.2); Alkaline Phosphatase 83 U/L (40-130); Anion Gap 12.4 (5-19); Aspartate Amino Transferase 18 U/L (0-40); Blood Urea Nitrogen 21 mg/dL (8-23); Calcium 9.6 mg/dL (8.5-10.5); Carbon Dioxide 27 mmol/L (22-29); Chloride 101 mmol/L (98-107); Creatinine Clr Calc Pharmacy 50.1717; Globulin 3.4 g/dL (1.3-4.6); Glucose 91 mg/dL (65-115); Osmolality Calculated 285 mOsm/kg (285-295); Potassium 4.4 mmol/L (3.5-5.1); Sodium 136 mmol/L (136-145); Total Bilirubin 0.3 mg/dL (0.15-1.2); Total Protein 7.3 g/dL (6.6-8.7)
[2024-08-05] MEDS: iohexol 350 mg/mL 500 mL Btl (per mL) IV (10:30)
[2024-08-05 10:42] LABS: Add Urine Microscopic? YES; UA Manual Slide Review YES; Urine Appearance Cloudy (CLEAR)
[2024-08-05 10:43] LABS: Add Urine Culture? Yes; Bacteria Urine 2+ /hpf; RBC Urine TOO NUMEROUS TO CNT /hpf (0-2); Urine Color Red (Yellow)
[2024-08-05 11:01] VITALS: BP 158/77; PULSE 44; RESP 16; O2SAT 98
[2024-08-05 11:21] VITALS: BP 158/77; PULSE 45; RESP 16; O2SAT 98
--- NOTE | 2024-08-07 09:47 | DCPLANNER ---
faxed referral packet faxed to [facility]
== END 2024-08-05 11:33 | disposition home or self-care (01) ==
PROVIDERS: Emergency Provider Emergency Medicine; PCP Family Medicine
DX: R31.9 Hematuria, unspecified (principal)
CPT/HCPCS: 36415; 74177; 80053; 81001; 85025; 85610; 87086; 99285

== ENCOUNTER → 2024-09-21 12:02 | Outpatient (BNVA) | payer MEDICARE, OTHER, SELFPAY | PROVIDERS: PCP Family Medicine; Visit Provider Specialist | DX: R29.90 Unspecified symptoms and signs involving the nervous system (principal); G45.9 Transient cerebral ischemic attack, unspecified; G30.9 Alzheimer's disease, unspecified; F02.80 Dementia in other diseases classified elsewhere, unspecified severity, without behavioral disturbance, psychotic disturbance, mood disturbance, and anxiety; G62.89 Other specified polyneuropathies; F33.41 Major depressive disorder, recurrent, in partial remission; R03.0 Elevated blood-pressure reading, without diagnosis of hypertension | CPT/HCPCS: 99214 ==

== ENCOUNTER → 2024-10-17 10:17 | Outpatient (BNVA) | payer MEDICARE, OTHER, SELFPAY | PROVIDERS: PCP Family Medicine; Visit Provider Podiatrist Foot & Ankle Surgery | DX: I73.9 Peripheral vascular disease, unspecified (principal); L60.3 Nail dystrophy; Q82.8 Other specified congenital malformations of skin; G62.89 Other specified polyneuropathies; L84 Corns and callosities; M20.21 Hallux rigidus, right foot | CPT/HCPCS: 11721; 17110 ==

== ENCOUNTER → 2024-11-20 11:26 | Outpatient (BNVA) | payer MEDICARE, OTHER, SELFPAY | PROVIDERS: PCP Family Medicine; Visit Provider Orthopaedic Surgery | DX: M17.11 Unilateral primary osteoarthritis, right knee (principal) | CPT/HCPCS: 20610; 73560; 73565; 99204; J3301; J3490; J9999 ==

== ENCOUNTER → 2024-12-05 08:50 | Outpatient (BNVA) | payer MEDICARE, OTHER, SELFPAY | PROVIDERS: PCP Family Medicine; Visit Provider Orthopaedic Surgery | DX: M25.561 Pain in right knee (principal); M17.11 Unilateral primary osteoarthritis, right knee | CPT/HCPCS: 20610; 99213; J7325 ==

== ENCOUNTER → 2025-03-08 09:53 | Outpatient (BNVA) | payer MEDICARE, OTHER, SELFPAY | PROVIDERS: PCP Family Medicine; Visit Provider Orthopaedic Surgery | DX: M17.11 Unilateral primary osteoarthritis, right knee (principal) | CPT/HCPCS: 99213 ==

== ENCOUNTER → 2025-03-13 08:38 | Outpatient (BNVA) | payer MEDICARE, OTHER, SELFPAY | PROVIDERS: PCP Family Medicine; Visit Provider Specialist | DX: G30.9 Alzheimer's disease, unspecified (principal); F02.80 Dementia in other diseases classified elsewhere, unspecified severity, without behavioral disturbance, psychotic disturbance, mood disturbance, and anxiety; G62.89 Other specified polyneuropathies; F33.41 Major depressive disorder, recurrent, in partial remission; R03.0 Elevated blood-pressure reading, without diagnosis of hypertension | CPT/HCPCS: 99214 ==